=== PATIENT | male | born 1990 | race Hispanic/Latino ===

== ENCOUNTER 2023-06-09 19:38 | Emergency (ER) | payer SELFPAY ==
[~2023-06-09] VITALS: Ht 154.9 cm; Wt 61.0 kg
[2023-06-09 21:12] LABS: BASO% 0.4 % (0-3); EOS% 1.6 % (0-8); HEMATOCRIT 41.3 % (39.0-50.0); HEMOGLOBIN 14.5 g/dl (14.0-18.0); IMMATURE GRANULOCYTES 0.1 % (0.0-5.0); MEAN CELL VOLUME 88.1 fL CALC (80.0-100.0); MEAN CORPUSCULAR HGB 30.9 pG CALC (26.0-32.0); MEAN CORPUSCULAR HGB CONC 35.1 g/dL CAL (32.0-36.0); MONO% 7.3 % (2-13); NEUT# 4.33 thou/uL (1.82-7.42); NEUT% 57.6 % (42-76); RED BLOOD COUNT 4.69 mill/uL (4.70-6.10); RED CELL DISTRI WIDTH 12.3 % (11.5-15.5); URINE BILIRUBIN - DIPSTICK NEGATIVE (NEGATIVE); URINE BLOOD DIPSTICK NEGATIVE (NEGATIVE); URINE COLOR YELLOW; URINE GLUCOSE - DIPSTICK NEGATIVE (NEGATIVE); URINE KETONE NEGATIVE (NEGATIVE); URINE LEUK ESTERASE NEGATIVE (NEGATIVE); URINE PH 7.5 (4.5-8.0); URINE PROTEIN - DIPSTICK NEGATIVE (NEG-TRACE); URINE SPECIFIC GRAVITY 1.025; URINE UROBILINOGEN - DIPSTICK 0.2 E.U./dL (0.2)
[2023-06-09 21:14] LABS: URINE NITRITE - DIPSTICK NEGATIVE (Negative)
[2023-06-09 21:19] LABS: ALKALINE PHOSPHATASE 76 u/l (38-126); ANION GAP 13 (6-22 (CALC)); BILIRUBIN, TOTAL 1.6 mg/dL (0.2-1.3); BUN 12 mg/dL (9-20); BUN/CREATININE RATIO 12 (12-20 (CALC)); CARBON DIOXIDE 30 mmol/l (22-30); CHLORIDE 104 mmol/l (95-108); GFR FOR AFR.AMER. > 60 ML/MIN (>=60 (CALC)); GFR OTHER RACES > 60 ML/MIN (>=60 (CALC)); POTASSIUM 3.9 mmol/l (3.5-5.1); SGOT/AST 32 u/l (17-59); SODIUM 143 mmol/l (137-146); TOTAL PROTEIN 8.4 g/dL (6.3-8.2)
[2023-06-09] MEDS ORDERED: LISINOP/HCTZ1 TA2 PO (21:56)
[2023-06-09 22:08] VITALS: BP 132/76
== END 2023-06-09 22:54 | disposition home or self-care (01) | DRG 305 ==
LOC: ED 19:38
PROVIDERS: Family Medicine
DX: I10 Essential (primary) hypertension (principal); F41.9 Anxiety disorder, unspecified

== ENCOUNTER 2024-12-17 20:28 | Emergency (ER) | payer SELFPAY ==
[~2024-12-17] VITALS: Ht 154.9 cm; Wt 65.0 kg
[~2024-12-17 20:28] MED LIST: LISINOP/HCTZ1 TA2 PO
[2024-12-17] MEDS ORDERED: hydroCHLOROthiazide 12.5 MG/CAP PO ONE (20:45)
[2024-12-17] MEDS ORDERED: LISINOPRIL 10 MG/TAB PO ONE (20:45)
[2024-12-17 21:08] VITALS: BP 148/99
== END 2024-12-17 21:08 | disposition home or self-care (01) | DRG 305 ==
LOC: ED 20:28
DX: I10 Essential (primary) hypertension (principal); T46.5X6A Underdosing of other antihypertensive drugs, initial encounter; Z91.128 Patient's intentional underdosing of medication regimen for other reason